=== PATIENT | female | born 1975 | race Caucasian/White ===

== ENCOUNTER 2017-11-20 21:37 | Emergency (ER) | payer OTHER ==
[~2017-11-20] VITALS: Ht 167.6 cm; Wt 65.8 kg
[2017-11-20 21:52] VITALS: BP 134/93
[2017-11-20] MEDS ORDERED: LORAZEPAM 1 MG TABLET PO ONE (22:30)
[2017-11-20] MEDS ORDERED: LORAZEPAM 1 MG TABLET ONE (22:37)
== END 2017-11-20 22:55 | disposition home or self-care (01) ==
LOC: ER 21:45
DX: F41.9 Anxiety disorder, unspecified (principal); J06.9 Acute upper respiratory infection, unspecified
CPT/HCPCS: A4606; Z7610